=== PATIENT | male | born 1975 | race African-American/Black ===

== ENCOUNTER 2019-10-20 00:35 | Emergency (ER) | payer MEDICAID ==
[~2019-10-20] VITALS: Ht 182.9 cm; Wt 75.0 kg
[2019-10-20] MEDS ORDERED: DEXAMETHASONE 4MG TABLET PO ONE ×2 (01:45→02:15)
[2019-10-20] MEDS ORDERED: ACETAMINOPHEN 500MG TABLET PO ONE (01:45)
[2019-10-20 06:00] VITALS: BP 120/74
== END 2019-10-20 08:49 | disposition home or self-care (01) ==
LOC: ER 00:35
DX: B86 Scabies (principal); Z88.8 Allergy status to other drugs, medicaments and biological substances; Z59.0 Homelessness
CPT/HCPCS: 99283; J8540